=== PATIENT | female | born 1980 | race Asian ===

== ENCOUNTER 2017-02-01 17:21 | Emergency (ER) | payer BC, MEDICAID ==
[~2017-02-01] VITALS: Wt 55.0 kg
[2017-02-01] MEDS ORDERED: ONDANSETRON 4 MG INJ IV STA (18:09)
--- NOTE | 2017-02-01 18:15 | ERD ---
ER Documentation Chief Complaint Date/Time DATE: 02/01/17 TIME: 18:12 Chief Complaint FLU SYMPTOMS SINCE YESTERDAY HPI This pleasant 28 week female presenting to emergency department for nausea, vomiting, diarrhea 1 days. Patient reports that she has not been able to eat or drink, she reports vomiting 5 times today, for diarrhea stools patient reports that her entire family has the same symptoms, unable to rule out contaminated food versus viral gastroenteritis. Patient has taken no over- the-counter medication for symptomatic relief. Patient reports headache, weakness, nausea, and vomiting, patient is actively dry heaving in exam room. Patient reports normal baby movement, denies abdominal pain, abdominal cramping suspected from diarrhea. Patient denies dysuria, back pain, hematuria ROS All systems reviewed and are negative except as per history of present illness. Allergies Allergies: Uncoded Allergies: SEAFOOD (Allergy, Intermediate, 09/12/15) ITCHING, SWELLING, RASHES PMhx/Soc History of Surgery: Yes ( x2) Anesthesia Reaction: No Hx Neurological Disorder: No Hx Respiratory Disorders: No Hx Cardiac Disorders: No Hx Psychiatric Problems: No Hx Miscellaneous Medical Probl: Yes () Hx Alcohol Use: No Hx Substance Use: No Hx Tobacco Use: No Smoking Status: Never smoker Physical Exam Vitals Vital Signs Date Time Temp Pulse Resp B/P Pulse Ox O2 Delivery O2 Flow Rate FiO2 02/01/17 17:24 97.8 108 18 128/84 99 Physical Exam Const: Well-hydrated, well-nourished, well appearing, in no acute distress Head: Atraumatic Eyes: Normal Conjunctiva, PERRLA, EOMI ENT: Normal External Ears, Nose and Mouth. Mucous membranes moist Neck: Resp: Respirations even and unlabored, no respiratory distress Cardio: Abd: 's abdomen Skin: Back: No midline or flank tenderness Ext: Neur: Awake and alert Psych: Normal Mood and Affect Results 24 hrs Laboratory Tests Test 02/01/17 18:52 Urine Color YELLOW Urine Clarity SLIGHTLY CLOUDY Urine pH 5.0 Urine Specific [place] 1.029 Urine Ketones 2+mg/dL Urine Nitrite NEGATIVEmg/dL Urine Bilirubin NEGATIVEmg/dL Urine Urobilinogen NEGATIVEmg/dL Urine Leukocyte Esterase NEGATIVELeu/ul Urine Microscopic RBC 3/HPF Urine Microscopic WBC 5/HPF Urine Squamous Epithelial Cells FEW/HPF Urine Bacteria FEW/HPF Urine Mucus FEW/HPF Urine Hemoglobin NEGATIVEmg/dL Urine Glucose NEGATIVEmg/dL Urine Total Protein 1+mg/dl Current Medications Medications (Trade) Dose Ordered Sig/River Route PRN Reason Start Time Stop Time Status Last Admin Dose Admin Sodium Chloride (NS) 1,000 ml @ 1,000 mls/hr Q1H ONCE IV 02/01/17 18:30 02/01/17 19:29 DC 02/01/17 18:34 Ondansetron HCl (Zofran Inj) 4 mg ONCE STAT IV 02/01/17 18:09 02/01/17 18:12 DC 02/01/17 18:34 Acetaminophen (Tylenol Tab) 650 mg ONCE ONCE PO 02/01/17 18:30 02/01/17 18:31 DC 02/01/17 18:34 Procedures/MDM PROCEDURE: Obstetrical ultrasound CLINICAL INDICATION: abd cramping TECHNIQUE: Multiple sonographic images of the pelvis were obtained. The images were reviewed on a PACS workstation. COMPARISON: None FINDINGS: The cervix is not well visualized. There is a single viable intrauterine gestation. Cardiac activity is present with 144 beats per minute. There is a vertex presentation. The placenta is anterior. There is no evidence for an abruption or placenta previa. There is a normal amount of amniotic fluid with an RAFAELA = 11.9 cm. Measurements were made in order to determine age. The results are as follows (cm): BPD = 7.16 HC = 25.87 AC = 23.45 FL = 5.05 Estimated gestational age by ultrasound of approximately 28 weeks, 0 days. The estimated date of delivery by ultrasound is 04/26/2017. Estimated gestational age by LMP of approximately 27 weeks, 4 days. The estimated date of delivery by LMP is 04/29/2017. EFW = 1106 grams (40th percentile) Bilateral ovaries are not visualized. There are no abnormal adnexal masses. IMPRESSION: Single viable intrauterine gestation of approximately 28 weeks, 0 days . The estimated date of delivery is 04/26/2017 . Dating by ultrasound is within 3 days of dating by LMP. Cephalic presentation. Normal RAFAELA. Anterior placenta without evidence of an abruption or placenta previa. Bilateral ovaries are not visualized. There are no abnormal adnexal masses. RPTAT: EE Physician Rodney Date Time Electronically viewed and signed by Holden Reynoso Physician on 02/01/2017 19:26 This 36-year-old female presents to emergency department with complaint of nausea, vomiting, diarrhea, symptoms have been ongoing for the last 24 hours. Patient reports vomiting 5, for diarrhea stools, sick contacts at home with similar symptoms. Patient is 28 weeks , reports abdominal cramping, fatigue, reports normal baby movement, denies vaginal discharge or bleeding. No suspicion for miscarriage, urinary tract infection, ultrasound performed regardless with documentation of a single viable intrauterine gestation approximately 28 weeks, 0 days. Normal RAFAELA, anterior placenta without evidence of abruption or placenta previa, bilateral ovaries not visualized. There is no abdominal and adnexal masses. Urinary tract infection negative for evidence of microscopic hematuria, leukocytosis or nitrates. Positive for ketones which supports complaint of vomiting. Patient treated with a liter of normal saline, Zofran, Tylenol. Reports feeling improvement after interventions. Patient discharged home after passing fluid challenge, prescribed Zofran 4 mg every 6 hours as needed for nausea, instructed to let diarrhea run course, return to emergency department for blood in stool, worsening of cramping, vaginal discharge, or change in baby movement. Increase fluids, clear liquid diet advance as tolerated. I feel the patient is stable for discharge with outpatient management and follow-up with primary care physician. I have discussed results, examination findings, the treatment plan with the patient and family present prior to discharge. Indications for emergent reevaluation, side effects of medication were also discussed. All questions were answered. Patient verbalizes understanding and agrees with plan of care. Departure Diagnosis: Primary Impression: Nausea vomiting and diarrhea Condition: Good Patient Instructions: Gastritis (Adult), Nausea and Vomiting-Adult Additional Instructions: Thank you for for coming to [facility] for your care today. Please ask your nurse or provider if you have questions about your care today and do not leave until all your questions have been answered. Please use any medications given as directed and follow-up with your doctor (or the doctor you were referred to) in the next 2-3 days. If you do not have a primary care doctor you [place] [facility] [place] [facility] [place] You may also use motrin and tylenol as needed for fever and/or pain unless instructed otherwise by your provider or nurse. Indications for more urgent follow-up have been discussed, but you may return to the Emergency Department at ANY time for any worrisome or worsening symptoms. If you have abdominal pain, please know that no test or exam you received is perfect and you should follow up within 8 hours for continued pain. If you had any imaging studies today, such as an X-Ray or CT Scan, these studies will be reviewed later by a radiologist. You will be called if there are important findings that were not identified today, so make sure the contact information you provided at registration is correct. If you received any narcotic pain control medicine today, such as Vicodin, Morphine or Dilaudid, your coordination and judgment may be affected for a number of hours. Please do not drive or operate heavy machinery, and you may want someone to assist you at home. If you were given a prescription for narcotic medication, be aware that it is very addictive- use sparingly and only if necessary. LUCA ROMERO Feb 01, 2017 18:15
[2017-02-01] MEDS ORDERED: SOD CHLORIDE 0.9% 1,000 ML IV ONE (18:30)
[2017-02-01] MEDS ORDERED: ACETAMINOPHEN 325 MG TAB PO ONE (18:30)
[2017-02-01 19:26] LABS: ADD UMIC YES; UR ASCORBIC ACID NEGATIVE (NEGATIVE); UR BACTERIA FEW /HPF (NONE SEEN); UR BILIRUBIN (Dip) NEGATIVE (NEGATIVE); UR BLOOD (Dip) NEGATIVE (NEGATIVE); UR CLARITY SLIGHTLY CLOUDY (CLEAR); UR COLOR YELLOW (YELLOW); UR GLUCOSE (Dip) NEGATIVE (NEGATIVE); UR KETONES (Dip) 2+ mg/dL (NEGATIVE); UR LEUKOCYTE ESTERASE (Dip) NEGATIVE Leu/ul (NEGATIVE); UR MUCUS FEW /HPF (NONE SEEN); UR NITRITE (Dip) NEGATIVE (NEGATIVE); UR RBC 3 /HPF (0-5); UR SPECIFIC GRAVITY (Dip) 1.029 (1.003-1.030); UR SQUAMOUS EPITHELIAL CELL FEW /HPF (FEW); UR TOTAL PROTEIN (Dip) 1+ mg/dl (NEGATIVE); UR UROBILINOGEN (Dip) NEGATIVE (NEGATIVE)
--- NOTE | 2017-02-01 19:26 | RADRPT ---
PROCEDURE: Obstetrical ultrasound CLINICAL INDICATION: abd cramping TECHNIQUE: Multiple sonographic images of the pelvis were obtained. The images were reviewed on a PACS workstation. COMPARISON: None FINDINGS: The cervix is not well visualized. There is a single viable intrauterine gestation. Cardiac activity is present with 144 beats per minute. There is a vertex presentation. The placenta is anterior. There is no evidence for an abruption or placenta previa. There is a normal amount of amniotic fluid with an RAFAELA = 11.9 cm. Measurements were made in order to determine age. The results are as follows (cm): BPD =7.16 HC =25.87 AC =23.45 FL =5.05 Estimated gestational age by ultrasound of approximately 28 weeks, 0 days. The estimated date of delivery by ultrasound is 04/26/2017. Estimated gestational age by LMP of approximately 27 weeks, 4 days. The estimated date of delivery by LMP is 04/29/2017. EFW = 1106 grams (40th percentile) Bilateral ovaries are not visualized. There are no abnormal adnexal masses. IMPRESSION: Single viable intrauterine gestation of approximately 28 weeks, 0 days . The estimated date of delivery is 04/26/2017 . Dating by ultrasound is within 3 days of dating by LMP. Cephalic presentation. Normal RAFAELA. Anterior placenta without evidence of an abruption or placenta previa. Bilateral ovaries are not visualized. There are no abnormal adnexal masses. RPTAT: EE Physician Rodney Date Time Electronically viewed and signed by Physician Rodney on 02/01/2017 19:26 /
[2017-02-01] MEDS ORDERED: ONDA4TAB8 PO (19:48)
[2017-02-01 20:02] VITALS: BP 133/84; PULSE 72; RESP 19
== END 2017-02-01 20:03 | disposition home or self-care (01) ==
LOC: FTE 17:21
DX: O26.893 Other specified pregnancy related conditions, third trimester (principal); O21.9 Vomiting of pregnancy, unspecified; R19.7 Diarrhea, unspecified; Z3A.28 28 weeks gestation of pregnancy
CPT/HCPCS: 76805; 81001; 96374; 99285; J2405; J7030; Z7610